=== PATIENT | male | born 2005 | race Caucasian/White ===

== ENCOUNTER 2024-11-27 18:54 | Emergency (ER) | payer BC, SELFPAY ==
--- OUTSIDE RECORDS SUMMARY | 2024-11-27 18:56 | XMS_ITS | Encounter Summary ---
Author Organization [facility], [facility], & [facility] Address [address] [place] [address] Care Team Providers Care Cryptologic Support Specialist Name Role Phone Caleb Jin MD,FAAP Primary Care Provider Unavailable Jamir Leonard MD Primary Care Provider +1- [phone] Encounter Details Date Type Department Care Team (Latest Contact Info) Description 04/10/2015 Scanning MCF SCANNING DEPT [facility] Scanned, Documents [address] [place] [address] Social History Tobacco Use Types Packs/Day Years Used Date Smoking Tobacco: Never Smokeless Tobacco: Never Alcohol Use Standard Drinks/Week Comments Not Asked 0 (1 standard drink = 0.6 oz pur e alcohol) Sex and Gender Information Value Date Recorded Sex Assigned at Not on file Legal Sex Male 2:47 PM CDT Gender Identity Not on file Sexual Orientation Not on file documented as of this encounter Plan of Treatment Not on file documented as of this encounter Visit Diagnoses Not on filedocumented in this encounter Additional Health Concerns Infection Onset Date Last Indicated Resolved Time RSV 07/19/2022 07/19/2022 07/26/2022 8:55 PM 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
--- OUTSIDE RECORDS SUMMARY | 2024-11-27 18:56 | XMS_ITS | Clinical Summary ---
Author Organization [facility], [facility], & [facility] Address [address] [place] [address] Care Team Providers Care Pipe Covering Molder Name Role Phone Jamir Leonard MD Primary Care Provider +1- [phone] Allergies No known active allergies Medications * Always verify current medications with the patient because some medications mayno longer be current as of this document. 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 Immunizations Immunization Administration Dates Next Due (12 YRS+), Pfizer SARS-COV-2 (COVID),mRNA, PF, 30 mcg/0.3ml,IM, (COMIRNATY) 04/24/2023 (2-49 Years) Influenza Vacci ne Intranasal (FLUMIST) (0.2ml prefilled) 04/03/2012,07/13/2011,03/28/2009 (2-49 Years) Influenza Vacci ne Quadrivalent Intranasal (FLUMIST) 04/09/2015 (2YR+) Influenza Vaccine MDC K quadrivalent Pres Free (FLUCELVAX) 05/03/2022 (3 Years +) Influenza Vacc Quadrivalent Preservative Free (PREFILLED) 03/29/2018,03/28/2017,03/05/2016 (6 Mo+) Influenza Vaccine Qu adrivalent Preservative Free 04/24/2023,03/30/2019 DTaP, 5 pertussis antigens (DAPTACEL) ,05/28/2005,2004,06/26,2004 HEP B-HIB (COMVAX) 02/26/2005,2004, 004 HPV 9 (Gardasil 9) 03/29/2018,03/28/2017 Hep A-Peds 2 Dose (Havrix Pe ds 2 Dose, VAQTA- 2Dose) 02/19/2011,02/09/2010 IPV (IPOL,Poliovax) 02/20/2009, 5,2004,04/24 Influenza (whole) 06/10/2005,05/07/2005 Influenza Injection, Quadriv alent Preservative Free 05/02/2021 Influenza, Unspecifed Formulation 06/10/2005, MMR (MMR II) 02/20/2009,02/26/2005 Meningococcal B, OMV (BEXSERO) 12/30/2022,2021 Meningococcal MCV4P (Menactra) 02/20/2020,2015 PFIZER COVID-19, mRNA, LNP-S , BIVALENT, PF, 30 mcg/0.3 mL dose, (AGES 12+),(wheatley cap vial), IM 04/03/2022 PFIZER SARS-COV-2 VACCINATIO N (purple cap vial) 06/26/2021,11/04/2020,10/13/2020 Pneumococcal conjugate PCV7 (Prevnar 7) 05/28/2005,2004,2004,04/24 Tdap (Adacel, Boostrix, >7 years, NOS) 6 Varicella (Varivax) 02/20/2009,02/26/2005 Family History Medical History Relation Comments High Cholesterol Father Cancer Mother Heart Disease Paternal Grandfather Relation Status Comments Father Alive Mother Alive Paternal Grandfather Social History Tobacco Use Types Packs/Day Years Used Date Smoking Tobacco: Never Smokeless Tobacco: Never Tobacco Cessation:Counseling Given: Not Answered Comments:non smoking home Alcohol Use Standard Drinks/Week Comments No 0 (1 standard drink = 0.6 oz pur e alcohol) PHQ-2 Answer Date Recorded PHQ-2 Score 0 01/18/2024 Sex and Gender Information Value Date Recorded Sex Assigned at Not on file Legal Sex Male 2:47 PM CDT Gender Identity Not on file Sexual Orientation Not on file Last Filed Vital Signs Vital Sign Reading Time Taken Comments Blood Pressure 102/68 01/18/2024 1:36 PM CDT Pulse 78 01/18/2024 1:36 PM CDT Temperature 36.8 C (98.2 F) 01/18/2024 1:36 PM CDT Respiratory Rate 16 01/18/2024 1:36 PM CDT Oxygen Saturation 98% 01/18/2024 1:36 PM CDT Inhaled Oxygen Concentration - - Weight 69.9 kg (154 lb) 01/18/2024 1:36 PM CDT Height 197.5 cm (6' 5.75) 01/18/2024 1:36 PM CD T Body Mass Index 17.91 01/18/2024 1:36 PM CDT Plan of Treatment Health Maintenance Due Date Last Done Comments COVID-19 Vaccine ([facility]) ( season) 2024 04/24/2023, 04/03/2022, 06/26/2021, Additional history exists Depression Screening/Exclusion ([facility]) 07/11/2024 01/18/2024, 12/30/2022, 10/14/2022, Additional history exists Visit with PCP ([facility]) 01/17/2025 01/18/2024 Influenza Vaccine ([facility]) (Season Ended) 2025 04/24/2023, 05/03/2022, 05/02/2021, Additional history exists DTaP/Tdap/TD Vaccines ([facility]) (7 - Td or Tdap) 03/24/2026 03/24/2016, 02/20/2009, 05/28/2005, Additional history exists Shingles Vaccines ([facility]) (1 of 2) 02/17/2054 HIB Vaccines ([facility]) Completed 02/26/2005, 1 08/27/2003, 2004 Hepatitis B Vaccines ([facility]) Completed 02/26, 2004, 2004 Pneumococcal Vaccine: Pediatrics (0 to 5 Years) And At Risk Patients (6 to 49 Years) ([facility]) Aged Out 05/28/2005, 2004, 2004, Additional history exists No longer eligible based on patient's age to complete this topic IPV Vaccines ([facility]) Completed 02/20/2009, 0 2004, 2004, Additional history exists Hepatitis A Vaccines ([facility]) Completed 02/19/2011, HPV Vaccines ([facility]) Completed 03/29/2018, 03/28/2017 Meningococcal ACWY Vaccines ([facility]) Completed 02/20/2020, 03/24/2016 Meningococcal B Vaccine ([facility]) Completed 12/30/2022, 01/21/2022 HIV Screen ([facility]) Discontinued Hepatitis C Screening ([facility]) Discontinued Insurance [employer] Member Subscriber Plan / Payer (Ef fective 2018-Present) Name:Cristian Hobbs Relation to Subscriber:Child Name:CHRIS KUHNCY Yosef Date of :1966 Address: [address] [place] [address] Payer ID:[id number] ([facility]) Type:[employer] Address: [place] [id number] [employer] Member Subscriber Plan / Payer (Ef fective 2018-Present) Name:Cristian Hobbs Relation to Subscriber:Child Name:Ludy Kuhn Date of :1966 ([place]) Address: [address] [place] [address] Payer ID:Not on file Type:Not on file Address: [place] [phone] [employer] Care Teams Pipe Covering Molder Relationship Specialty Start Date End Date Jamir Leonard MD [address] [address] PCP - General Internal Medicine 01/25/24
--- OUTSIDE RECORDS SUMMARY | 2024-11-27 18:56 | XMS_ITS | Encounter Summary ---
Author Organization [facility], [facility], [facility] Address [address] [place] [address] Care Team Providers Care Environmental Issues Instructor Name Role Phone Caleb Jin MD,FAAP Primary Care Provider Unavailable Jamir Leonard MD Primary Care Provider +1- [phone] Encounter Details Date Type Department Care Team (Latest Contact Info) Description 05/30/2019 Scanning [facility] SCANNING DEPT [facility] Scanned, Documents [address] [place] [address] Social History Tobacco Use Types Packs/Day Years Used Date Smoking Tobacco: Never Smokeless Tobacco: Never Comments:non smoking home Alcohol Use Standard Drinks/Week [...] Time RSV 07/19/2022 07/19/2022 07/26/2022 8:55 PM BALLET MASTER/MISTRESS Assessment Noted Time PHQ-9 Depression Total Score: 2 03/28/20 17 4:00 PM CDT PHQ-2 Depression Total Score: 1 03/30/20 19 3:12 PM CDT documented as of this encounter Care Teams Environmental Issues Instructor Relationship Specialty Start Date End Date Caleb Jin MD,FAAP PCP - General Pediatrics 04/09/15 01/24/24 Jamir Leonard MD [address] [place] [address] PCP - General Internal Medicine 01/25/24 documented as of this encounter
--- OUTSIDE RECORDS SUMMARY | 2024-11-27 18:56 | XMS_ITS | Encounter Summary ---
Author Organization [facility], [facility], [facility] Address [address] [place] [address] Care Team Providers Care Causticiser Name Role Phone Caleb Jin MD,FAAP Primary Care Provider Unavailable Jamir Leonard MD Primary Care Provider +1- [phone] Encounter Details Date Type Department Care Team (Latest Contact Info) Description 06/06/2019 Scanning [facility] SCANNING DEPT [facility] Scanned, Documents [address] [place] [address] Social History Tobacco Use Types Packs/Day [...] Time RSV 07/19/2022 07/19/2022 07/26/2022 8:55 PM LOADING INSPECTOR Assessment Noted Time PHQ-9 Depression Total Score: 2 03/28/20 17 4:00 PM CDT PHQ-2 Depression Total Score: 1 03/30/20 19 3:12 PM CDT documented as of this encounter Care Teams Causticiser Relationship Specialty Start Date End Date Caleb Jin MD,FAAP PCP - General Pediatrics 04/09/15 01/24/24 Jamir Leonard MD [address] [place] [address] PCP - General Internal Medicine 01/25/24 documented as of this encounter
--- OUTSIDE RECORDS SUMMARY | 2024-11-27 18:56 | XMS_ITS | Encounter Summary ---
Author Organization [facility], [facility], & [facility] Address [address] [place] [address] Care Team Providers Care Tactical Air Control Party Manager Name Role Phone Caleb Jin MD,FAAP Primary Care Provider Unavailable Jamir Leonard MD Primary Care Provider +1- [phone] Encounter Details Date Type Department Care Team (Latest Contact Info) Description 05/26/2022 Scanning MCF SCANNING DEPT [facility] Scanned, Documents [address] [place] [address] Social History Tobacco Use Types [...] on file Sexual Orientation Not on file COVID-19 Exposure Response Date Recorded In the last 10 days, have yo u been in contact with someone who was confirmed or suspected to have Coronavirus/COVID-19? No / Unsure 05/14/2022 10:38 AM CDT documented as of this encounter Plan of Treatment Not on file documented as of this encounter Visit Diagnoses Not on filedocumented in this encounter Additional Health Concerns Infection Onset Date Last Indicated Resolved Time RSV 07/19/2022 07/19/2022 07/26/2022 8:55 PM PIPE STRIPPER Assessment Noted Time PHQ-9 Depression Total Score: 4 08/07/19 22 4:33 PM PIPE STRIPPER PHQ-2 Depression Total Score: 0 05/14/20 22 10:50 AM CDT documented as of this encounter Care Teams Tactical Air Control Party Manager Relationship Specialty Start Date End Date Caleb Jin MD,FAAP PCP - General Pediatrics 04/09/15 01/24/24 Jamir Leonard MD [address] [place] [address] PCP - General Internal Medicine 01/25/24 documented as of this encounter
--- OUTSIDE RECORDS SUMMARY | 2024-11-27 18:56 | XMS_ITS | Encounter Summary ---
Author Organization [facility], [facility] Address [address] [place] [address] Care Team Providers Care Food And Beverage Outlets Manager Name Role Phone Caelb Jin MD,FAAP Primary Care Provider Unavailable Jamir Leonard MD Primary Care Provider +1- [phone] Encounter Details Date Type Department Care Team (Latest Contact Info) Description 07/18/2019 Scanning MCF SCANNING DEPT [facility] Scanned, Documents [address] [place] [address] Social History Tobacco Use Types Packs/Day [...] Time RSV 07/19/2022 07/19/2022 07/26/2022 8:55 PM QUALITY REVIEW SPECIALIST Assessment Noted Time PHQ-9 Depression Total Score: 2 03/28/20 17 4:00 PM CDT PHQ-2 Depression Total Score: 0 07/18/19 20 3:41 PM QUALITY REVIEW SPECIALIST documented as of this encounter Care Teams Food And Beverage Outlets Manager Relationship Specialty Start Date End Date Caleb Jin MD,FAAP PCP - General Pediatrics 04/09/15 01/24/24 Jamir Leonard MD [address] [address] PCP - General Internal Medicine 01/25/24 documented as of this encounter
--- OUTSIDE RECORDS SUMMARY | 2024-11-27 18:56 | XMS_ITS | Clinical Summary ---
Author Organization [facility] Address [address] [place] [address] Care Team Providers Care Education Program Associate Name Role Phone Caleb Jin MD Primary Care Provider Unavaila ble Source Comments This disclosure is being made pursuant to the [employer] program and may contain all information available regarding this patient.[facility] Social History Tobacco Use Types Packs/Day Years Used Date Smoking Tobacco: Never Assessed Sex and Gender Information Value Date Recorded Sex Assigned at Not on file Legal Sex Male 10:56 AM CASHIER [address] Gender Identity Not on file Sexual Orientation Not on file Plan of Treatment Health Maintenance Due Date Last Done Comments Lab-Cholesterol Screening 2004 Lab-Hepatitis C Screening 2004 HPV Vaccine ([id number],M: 9-2 2) (1 - Male 3-dose series) 02/17/2019 Meningococcal B Vaccine (1 o f 2 - Standard) 2020 Annual Wellness Visit 02/17/2022 Hepatitis B Vaccine (1 of 3 - 19+ 3-dose series) 02/17/2023 Tetanus/Pertussis Vaccine Teen/Adult (1 - Tdap) 02/17/2023 COVID-19 Vaccine (1 - 2023-2 5 season) 2024 Influenza Vaccine (#1) 2024 Zoster (Shingles) Vaccine 50 + (1 of 2) 02/17/2054 RSV Adult (1 - 1-dose 75+ series) 02/17/2079 HIB Vaccine Aged Out No longer eligi ble based on patient's age to complete this topic Hepatitis A Vaccine Aged Out No longe r eligible based on patient's age to complete this topic IPV Vaccine Aged Out No longer eligi ble based on patient's age to complete this topic Meningococcal Conjugate Vaccine Aged Out No longer eligible based on patient's age to complete this topic Pneumococcal Vaccines 0-49 yo Aged Out No longer eligible based on patient's age to complete this topic RSV < 20 Months Aged Out No longer el igible based on patient's age to complete this topic Insurance [facility] PPO Care Teams Education Program Associate Relationship Specialty Start Date End Date Caleb Jin MD PCP - General Pediatrics 05/11/19
--- OUTSIDE RECORDS SUMMARY | 2024-11-27 18:56 | XMS_ITS | Encounter Summary ---
Author Organization [facility], [facility], [facility] Address [address] [place] [address] Care Team Providers Care Nfl Player Name Role Phone Caleb Jin MD,FAAP Primary Care Provider Unavailable Jamir Leonard MD Primary Care Provider +1- [phone] Encounter Details Date Type Department Care Team (Latest Contact Info) Description 05/28/2019 Scanning MCF SCANNING DEPT [facility] Scanned, Documents [address] [place] [address] Social History Tobacco Use Types Packs/Day [...] Time RSV 07/19/2022 07/19/2022 07/26/2022 8:55 PM ENGINEERING GROUP MANAGER Assessment Noted Time PHQ-9 Depression Total Score: 2 03/28/20 17 4:00 PM CDT PHQ-2 Depression Total Score: 1 03/30/20 19 3:12 PM CDT documented as of this encounter Care Teams Nfl Player Relationship Specialty Start Date End Date Caleb Jin MD,FAAP PCP - General Pediatrics 04/09/15 01/24/24 Jamir Leonard MD [address] [address] PCP - General Internal Medicine 01/25/24 documented as of this encounter
--- OUTSIDE RECORDS SUMMARY | 2024-11-27 18:56 | XMS_ITS | Encounter Summary ---
Author Organization [facility], [facility], & [facility] Address [address] [place] [address] Care Team Providers Care Treatment Supervisor Name Role Phone Caleb Jin MD,FAAP Primary Care Provider Unavailable Jamir Leonard MD Primary Care Provider +1- [phone] Encounter Details Date Type Department Care Team (Latest Contact Info) Description 06/09/2022 Scanning MCF SCANNING DEPT [facility] Scanned, Documents [address] [place] [address] Social History Tobacco Use Types [...] suspected to have Coronavirus/COVID-19? No / Unsure 06/09/2022 7:22 AM DIRECTOR PEDIATRIC documented as of this encounter Plan of Treatment Not on file documented as of this encounter Visit Diagnoses Not on filedocumented in this encounter Additional Health Concerns Infection Onset Date Last Indicated Resolved Time RSV 07/19/2022 07/19/2022 07/26/2022 8:55 PM DIRECTOR PEDIATRIC Assessment Noted Time PHQ-9 Depression Total Score: 4 08/07/19 22 4:33 PM DIRECTOR PEDIATRIC PHQ-2 Depression Total Score: 0 06/09/20 3:46 PM DIRECTOR PEDIATRIC documented as of this encounter Care Teams Treatment Supervisor Relationship Specialty Start Date End Date Caleb Jin MD,FAAP PCP - General Pediatrics 04/09/15 01/24/24 Jamir Leonard MD [address] [place] [address] PCP - General Internal Medicine 01/25/24 documented as of this encounter
--- OUTSIDE RECORDS SUMMARY | 2024-11-27 18:56 | XMS_ITS | Clinical Summary ---
Author Organization [facility] Address [address] [place] [address] Care Team Providers Care Curb Builder Name Role Phone Clinic, No Pcp Or Primary Care Provider Unavaila ble Allergies No known active allergies Medications cetirizine (ZyrTEC) 10 mg tablet Take 10 mg by mouth once daily. Active albuterol HFA (PRO-AIR; VENTOLIN; PROVENTIL) 90 mcg/actuation inhalerIndicati ons:Chronic cough Inhale 1-2 Puffs by mouth every 4 hours if needed for Shortness Of Breath or Wheezing. 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 Resolved Problems Problem Noted Date Diagnosed Date Resolved Date Patellar dislocation, left, subsequent encounter 05/28/2019 07/15/2023 Encounters Date Type Department Care Team Description 09/14/2024 Nurse Triage [facility] [address] [place] [address] Clinic, No Pcp Or Infection on Antibiotic Follow-up 09/12/2024 10:35 AM MILLING OPERATOR Office Visit [facility] [address] [place] [address] Bridget Majano Winter DO URI (x5 days, congestion cough ) 09/12/2024 Travel from Last 3 Months Immunizations Immunization Administration Dates Next Due COVID-19 VACCINE COMIRNATY (PFIZER-BIONTECH 30MCG/0.3ML) 12YO+ PFS 04/24/2023 COVID-19 vaccine (Pfizer-Bio NTech 30mcg/0.3mL) 12YO+ BIVALENT PF, MDV 04/03/2022 COVID-19 vaccine ([employer] 30mcg/0.3mL) PF, MDV 06/26/2021 Dtap-5 Pertussis Antigens 02/20/2009,,2004,06/26,2004 HIB-HepB (Comvax) 02/26/2005,2004,04/24/20 04 HPV 9 (Gardasil 9) 03/29/2018,03/28/2017 Hepatitis A (Peds) 02/19/2011,02/09/2010 Inactivated Polio Vaccine 02/20/2009,,2004,04/24 Influenza Virus, Unspecified 05/03/2022, 03/30/2019,03/29/2018,03/28,03/05/2016,04/09/2015,06/10/2005 ,05/07/2005 Influenza, IIV4 04/24/2023,05/02/2021 Influenza, Whole Virus 06/10/2005,05/07/2005 Influenza,LAIV3 Live Intrana ayleen (Flumist) 04/03/2012,07/13/2011,03/28/2009 MMR 02/20/2009,02/26/2005 Meningococcal B 12/30/2022,01/21/2022 Meningococcal Vaccine (Menactra) 02/20/2020,03/11 Pneumococcal conj 7-Valent (Prevnar 7) 1 2004,2004,2004,04/24 Tdap 03/24/2016 Varicella Vaccine 02/20/2009,02/26/2005 Social History Tobacco Use Types Packs/Day Years Used Date Smoking Tobacco: Never Smokeless Tobacco: Never Tobacco Cessation:Counseling Given: Yes Alcohol Use Standard Drinks/Week Comments Never 0 (1 standard drink = 0.6 oz pur e alcohol) PHQ-2 Answer Date Recorded PHQ-2 TOTAL SCORE 2 08/02/2024 Sex and Gender Information Value Date Recorded Sex Assigned at Not on file Legal Sex Male 2:09 PM CDT Gender Identity Not on file Sexual Orientation Not on file Obstetrics History Last Filed Vital Signs Vital Sign Reading Time Taken Comments Blood Pressure 129/75 09/12/2024 10:49 AM MILLING OPERATOR Pulse 72 09/12/2024 10:49 AM MILLING OPERATOR Temperature 36.7 C (98 F) 09/12/2024 10:49 AM MILLING OPERATOR Respiratory Rate - - Oxygen Saturation 99% 09/12/2024 10:49 AM MILLING OPERATOR Inhaled Oxygen Concentration - - Weight 71.5 kg (157 lb 9.6 oz) 09/12/2024 10:49 AM MILLING OPERATOR Height - - Body Mass Index - - Plan of Treatment Health Maintenance Due Date Last Done Comments Well Child Check for age 3-20 01/17/2007 HIV for age 15-65 02/17/2019 BMI (ht and wt on same day) for age 18+ 02/17/2022 Hepatitis C screening for age 18-79 02/17/2022 COVID-19 vaccine series ( - 2023- season) 2024 04/24/2023, 04/03/2022, 06/26/2021, Additional history exists Influenza Vaccine (Season Ended) 2025 04/24/2023, 05/03/2022, 05/02/2021, Additional history exists Depression screening for age 12+ 08/02/2025 08/02/2024 Tetanus booster 03/24/2026 03/24/2016 Hepatitis B series for 19+ Completed 02/26, 2004, 2004 Pneumococcal series for age 6-49 Aged Out 05/28/2005, 2004, 2004, Additional history exists No longer eligible based on patient's age to complete this topic Tdap Completed 03/24/2016 HPV series for age 9-26 Completed 03/29/2018, 03/28 Meningococcal series for age 11-21 Completed 02/20/2020, 03/24/2016 Insurance [facility] Care Teams Curb Builder Relationship Specialty Start Date End Date Clinic, No Pcp Or . PCP - General 02/04/23
[2024-11-27 19:03] VITALS: BP 135/65; PULSE 128; RESP 20; TEMP 37.7; O2SAT 95; BMI 21.5
--- NOTE | 2024-11-27 19:19 | ED_ITS ---
HPI - General Adult General Chief complaint: Cough Stated complaint: Sick possible COVID Time Seen by Provider: 11/27/24 19:12 History of Present Illness HPI narrative: Patient reports cough, congestion, fever and achiness beginning last week but gradually worsening. Is taking Day Quil and Ny Quil. Patient's mother raises concern for Rabies as patient was bite by a stray cat several days ago. 19-year-old young man presenting to the emergency department with concern of ab out a week of cough congestion and elevated temperature. Symptoms began last week but over the last day in particular have worsened. Dpgw-cie-qfsiuqy DayQuil and NyQuil. Does have some sinus discomfort or headache across the frontal sinuses/4 head/eyes. Mom notes that really was prompting the visit though is her concern, there concern about cat bite and potential rabies. This cat bite with further questioning does sound it may have broken the skin on the right forearm. This cat is technically a stray but well known to a home where Cristian hangs out with his friends. The cat is friendly but can nip. Cat was seen actually yesterday in normal behavior. No particular pain or swelling or loss of sensation in the right arm. Has been given albuterol inhaler before but that is apparently due to some wheeze that may have been auscultated during other URI diagnosis. Does not have a diagnosis of asthma. Related Data Home Medications ?Medication ?Instructions ?Recorded ?Confirmed cetirizine 10 mg capsule (Zyrtec) 5 mg PO QDAY PRN 07/0211/27/24 Allergies Allergy/AdvReac Type Severity Reaction Status Date / Time No Known Drug Allergies Allergy Verified 04/02/24 11:08 Review of Systems Status of ROS: Reports: 6 or more systems reviewed and unremarkable except as noted in History and below [facility] Social History Smoking Status: Never smoker Do you use any of these nicotine containing products: None How often do you have a drink containing alcohol: never AUDIT-C Alcohol total score: 0 Non-prescribed substance use: denies use Exam Narrative: Exam Narrative: Pleasant. Tall. Does appear little flushed. Skin is otherwise warm and dry. TMs are clear. No facial swelling or erythema or tenderness over the maxillary sinuses. Congested in the nasopharynx. Oropharynx is moist. Mild erythema posteriorly. Neck is supple. Sore to palpation at the left neck but I do not appreciate any swelling or unusual lymphadenopathy. Extraocular movements look to be intact. Pupils are equal. Lungs are clear. Heart in elevated to tachycardic rate. Regular rhythm. No murmur rub or gallop identified. Abdomen is flat soft nontender. Well-perfused peripherally without edema. Exploration of the right forearm does not reveal any evidence of injury here. No axillary lymphadenopathy either. Const: Vital Signs, click to edit/add: Vital Signs - 24 hr 11/27/24 19:03 Temperature 99.8 F H Pulse Rate [Pulse Oximeter] 128 H Respiratory Rate 20 Blood Pressure [Ri ght Upper Arm] 135/65 Pulse Oximetry 95 Oxygen Delivery Me thod Room Air Documenting provider has reviewed patient's vital signs: yes Course Vital Signs Vital signs: Initial Vital Signs Temperature 99.8 F H 11/27/24 19:03 Temperature Source Temporal Artery Scan 11/27/24 19:03 Pulse Rate 128 H 11/27/24 19:03 Respiratory Rate 20 11/27/24 19:03 Blood Pressure 135/65 11/27/24 19:03 Blood Pressure Mean 88 11/27/24 19:03 Pulse Oximetry 95 11/27/24 19:03 Oxygen Delivery Method Room Air 11/27/24 19:03 Vital Signs Temperature 99.8 F H 11/27/24 19:03 Pulse Rate 128 H 11/27/24 19:03 Respiratory Rate 20 11/27/24 19:03 Blood Pressure 135/65 11/27/24 19:03 Pulse Oximetry 95 11/27/24 19:03 Oxygen Delivery Method Room Air 11/27/24 19:03 Temperature 99.8 F H 11/27/24 19:03 Pulse Rate 128 H 11/27/24 19:03 Respiratory Rate 20 11/27/24 19:03 Blood Pressure 135/65 11/27/24 19:03 Pulse Oximetry 95 11/27/24 19:03 Oxygen Delivery Method Room Air 11/27/24 19:03 Medical Decision Making [facility] Narrative Medical decision making narrative: Does appear to be suffering from escalation URI. Might be experiencing a sinusitis now. Symptoms now for a week and worsening. Would consider chest x- ray though I suspect does not have a pneumonia. I think might benefit from some prednisone for sinus and chest symptoms. It sounds as though the risk for rabies/rabies exposure would be quite low. With concerns I did place a call to [facility]. Recommendations are as expected; since the cat is a frequent visitor is to monitor. Contain if possible for 10 days following this bite. If not able to locate this cat or behavior has dramatically altered would then initiate rabies vaccine series after that period of time Chest x-ray independently reviewed by me looks to be without consolidation, infiltrate. Normal cardiac silhouette. Did take ibuprofen as administered by mom here in the emergency department. See patient discharge plan for further discussion Focus on hydration. Consider sleeping under the mist of a cool mist humidifier. Menthol vapors might be helpful. Can try various crfu-wwr-eamwwdn cough syrups if you like. Be careful with the combination products; they tend to be rather expensive 1st of all; just be sure to read the label on the back so you know everything that is in them. Pseudoephedrine can be helpful for decongestion and therefore help with cough as well particularly if experiencing postnasal drip. Prescribing some prednisone from [facility]. 4 days should be enough. Can take up to 600 mg of ibuprofen or up to 1000 mg of acetaminophen per dose. This might be helpful with body aches. These can be combined as well. If this CT(cat) is still behaving normally and about at 10 days I would say you are in the clear. If you have not managed to locate the cat (which would also potentially indicate that it is acting abnormally), then would consider getting the rabies vaccine series as you have noted there was a break in the skin. You can call to the [facility] at any time with further questions as well. Lab Data Labs: Lab Results 11/27/24 Range/Units 19:15 SARS-CoV-2 (PCR) Negative SARS-CoV-2 (Negative) Influenza Type A (PCR) Negative PCR FLU A (Negative) Influenza Type B (PCR) Negative PCR FLU B (Negative) RSV (PCR) Negative PCR RSV (Negative) Discharge Plan Discharge Clinical Impression: URI (upper respiratory infection), Cough Patient Disposition: Home w/ Parent or Adult Condition: Improved Instructions: Upper Respiratory Infection (DC) Additional Instructions: Focus on hydration. Consider sleeping under the mist of a cool mist humidifier. Menthol vapors might be helpful. Can try various almb-scd-ubfglrk cough syrups if you like. Be careful with the combination products; they tend to be rather expensive 1st of all; just be sure to read the label on the back so you know everything that is in them. Pseudoephedrine can be helpful for decongestion and therefore help with cough as well particularly if experiencing postnasal drip. Prescribing some prednisone from [facility]. 4 days should be enough. Can take up to 600 mg of ibuprofen or up to 1000 mg of acetaminophen per dose. This might be helpful with body aches. These can be combined as well. If this CT is still behaving normally and about at 10 days I would say you are in the clear. If you have not managed to locate the cat (which would also potentially indicate that it is acting abnormally), then would consider getting the rabies vaccine series as you have noted there was a break in the skin. You can call to the [place] department of [facility] at any time with further questions as well. Prescriptions: No Action Zyrtec 10 mg capsule 5 mg PO QDAY PRN Follow Up/Referrals: Provider,Not a Local [Primary Care Provider, Family Practice] Stand Alone Forms: Notify [employer] Info Instructions
--- NOTE | 2024-11-27 19:42 | CRLHL7_ITS ---
For Patients: As a result of the Century Cures Act, medical imaging exams and procedure reports are released immediately into your electronic medical record. You may view this report before your referring provider. If you have questions, please contact your health care provider. INDICATION: Cough, chest congestion. TECHNIQUE: Chest 2 views. COMPARISON: None. FINDINGS: Cardiovascular and mediastinum: Heart size and vasculature are normal in caliber and appearance. Lungs and pleural spaces: No focal consolidation, pleural effusion, or pneumothorax. Bones and soft tissues: Unremarkable for age. IMPRESSION: No evidence of an acute pulmonary process. Dictated by Arnold Denise MD @ 11/27/2024 8:03:53 PM (Electronically Signed)
--- OUTSIDE RECORDS SUMMARY | 2024-11-27 19:50 | XMS_ITS | Encounter Summary ---
Author Organization [facility], [facility], [facility] Address [address] [place] [address] Care Team Providers Care Tree Pruner Name Role Phone Caleb Jin MD,FAAP Primary Care Provider Unavailable Jamir Leonard MD Primary Care Provider +1- [phone] Encounter Details Date Type Department Care Team (Latest Contact Info) Description 05/30/2019 Scanning MCF SCANNING DEPT [facility] Scanned, Documents [address] [place] [address] Social History Tobacco Use Types Packs/Day [...] Time RSV 07/19/2022 07/19/2022 07/26/2022 8:55 PM 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
--- OUTSIDE RECORDS SUMMARY | 2024-11-27 19:50 | XMS_ITS | Clinical Summary ---
Author Organization [facility], [facility], & [facility] Address [address] [place] [address] Care Team Providers Care Stain Applicator Name Role Phone Jamir Leonard MD Primary Care Provider +1- [phone] Allergies No known active allergies Medications * [...] Due Date Last Done Comments COVID-19 Vaccine ([facility]) ( season) 2024 04/24/2023, 04/03/2022, 06/26/2021, Additional history exists Depression Screening/Exclusion ([facility]) 07/11/2024 01/18/2024, 12/30/2022, 10/14/2022, Additional history exists Visit with PCP ([facility]) 01/17/2025 01/18/2024 Influenza Vaccine ([facility]) (Season Ended) 2025 04/24/2023, 05/03/2022, 05/02/2021, Additional history exists DTaP/Tdap/TD Vaccines ([facility]) (7 - Td or Tdap) 03/24/2026 03/24/2016, 02/20/2009, 05/28/2005, Additional history exists Shingles Vaccines ([facility]) (1 of 2) 02/17/2054 HIB Vaccines ([facility]) Completed 02/26/2005, 1 08/27/2003, 2004 Hepatitis B Vaccines ([facility]) Completed 02/26, 2004, 2004 Pneumococcal Vaccine: Pediatrics (0 to 5 Years) And At Risk Patients (6 to 49 Years) ([facility]) Aged Out 05/28/2005, 2004, 2004, Additional [...] Discontinued Hepatitis C Screening ([facility]) Discontinued Insurance [email or web address] SHIELD Member Subscriber Plan / Payer (Ef fective 2018-Present) Name:Cristian Hobbs Relation to Subscriber:Child Name:CHRIS KUHNCY Yosef Date of :1966 Address: [address] [place] [address] Payer ID:[id number] ([facility]) Type:[employer] Address: [place] [id number] BLUE Social IQ (Social Influence Quotient) BLUE SHIELD/[employer]LL[employer] Member Subscriber Plan / Payer (Ef fective 2018-Present) Name:Cristian Hobbs Relation to Subscriber:Child Name:Ludy Kuhn Date of :1966 ([place]) Address: [address] [place] [address] Payer ID:Not on file Type:Not on file Address: [place] [id number] [email or web address] Care Teams Stain Applicator Relationship Specialty Start Date End Date Jamir Leonard MD [address] [address] PCP - General Internal Medicine 01/25/24
--- OUTSIDE RECORDS SUMMARY | 2024-11-27 19:50 | XMS_ITS | Encounter Summary ---
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
--- OUTSIDE RECORDS SUMMARY | 2024-11-27 19:50 | XMS_ITS | Encounter Summary ---
Author Organization [facility] [place], [facility], & [facility] Address [address] [place] [address] Care Team Providers Care Registered Medical Assistant Name Role Phone Caleb Jin MD,FAAP Primary Care Provider Unavailable Jamir Leonard MD Primary Care Provider +1- [phone] Encounter Details Date Type Department Care Team (Latest Contact Info) Description 05/26/2022 Scanning MCF SCANNING DEPT [facility] Scanned, Documents [address] [place] [address] Social History Tobacco Use Types [...] Time RSV 07/19/2022 07/19/2022 07/26/2022 8:55 PM SPECIMEN BOSS Assessment Noted Time PHQ-9 Depression Total Score: 4 08/07/19 22 4:33 PM SPECIMEN BOSS PHQ-2 Depression Total Score: 0 05/14/20 22 10:50 AM CDT documented as of this encounter Care Teams Registered Medical Assistant Relationship Specialty Start Date End Date Caleb Jin MD,FAAP PCP - General Pediatrics 04/09/15 01/24/24 Jamir Leonard MD [address] [place] [address] PCP - General Internal Medicine 01/25/24 documented as of this encounter
--- OUTSIDE RECORDS SUMMARY | 2024-11-27 19:50 | XMS_ITS | Clinical Summary ---
Author Organization [employer] Address [address] [place] [address] Care Team Providers Care Footwear Sales Coordinator Name Role Phone Caleb Jin MD Primary Care Provider Unavaila ble Source Comments This disclosure is being made pursuant to the [employer] program and may contain all information available regarding this patient.[employer] Social History Tobacco Use Types Packs/Day Years Used Date Smoking Tobacco: Never Assessed Sex and Gender Information Value Date Recorded Sex Assigned at Not on file Legal Sex Male 10:56 AM [employer] Gender Identity Not on file Sexual Orientation [...] patient's age to complete this topic Insurance [facility] PPO Care Teams Footwear Sales Coordinator Relationship Specialty Start Date End Date Caleb Jin MD PCP - General Pediatrics 05/11/19
--- OUTSIDE RECORDS SUMMARY | 2024-11-27 19:50 | XMS_ITS | Encounter Summary ---
Author Organization [facility], [facility], [facility] Address [address] [place] [address] Care Team Providers Care Junior Project Manager Name Role Phone Caleb Jin MD,FAAP Primary Care Provider Unavailable Jamir Leonard MD Primary Care Provider +1- [phone] Encounter Details Date Type Department Care Team (Latest Contact Info) Description 06/06/2019 Scanning MCF SCANNING DEPT [facility] Scanned, Documents [address] [place] [address] Social History Tobacco Use Types Packs/Day [...] Time RSV 07/19/2022 07/19/2022 07/26/2022 8:55 PM MUSIC PROFESSOR Assessment Noted Time PHQ-9 Depression Total Score: 2 03/28/20 17 4:00 PM CDT PHQ-2 Depression Total Score: 1 03/30/20 19 3:12 PM CDT documented as of this encounter Care Teams Junior Project Manager Relationship Specialty Start Date End Date Caleb Jin MD,FAAP PCP - General Pediatrics 04/09/15 01/24/24 Jamir Leonard MD [address] [address] PCP - General Internal Medicine 01/25/24 documented as of this encounter
--- OUTSIDE RECORDS SUMMARY | 2024-11-27 19:50 | XMS_ITS | Encounter Summary ---
Author Organization [facility], [facility], & [facility] Address [address] [place] [address] Care Team Providers Care Expediter Clerk Name Role Phone Caleb Jin MD,FAAP Primary Care Provider Unavailable Jamir Leonard MD Primary Care Provider +1- [phone] Encounter Details Date Type Department Care Team (Latest Contact Info) Description 06/09/2022 Scanning MCF SCANNING DEPT [facility] Scanned, Documents [address] [place] [address] Social History Tobacco Use Types [...] Coronavirus/COVID-19? No / Unsure 06/09/2022 7:22 AM DIVER ASSISTANT documented as of this encounter Plan of Treatment Not on file documented as of this encounter Visit Diagnoses Not on filedocumented in this encounter Additional Health Concerns Infection Onset Date Last Indicated Resolved Time RSV 07/19/2022 07/19/2022 07/26/2022 8:55 PM DIVER ASSISTANT Assessment Noted Time PHQ-9 Depression Total Score: 4 08/07/19 22 4:33 PM DIVER ASSISTANT PHQ-2 Depression Total Score: 0 06/09/20 3:46 PM DIVER ASSISTANT documented as of this encounter Care Teams Expediter Clerk Relationship Specialty Start Date End Date Caleb Jin MD,FAAP PCP - General Pediatrics 04/09/15 01/24/24 Jamir Leonard MD [address] [place] [address] PCP - General Internal Medicine 01/25/24 documented as of this encounter
--- OUTSIDE RECORDS SUMMARY | 2024-11-27 19:50 | XMS_ITS | Encounter Summary ---
Author Organization [facility], [facility], [facility] Address [address] [place] [address] Care Team Providers Care Photo Mask Processor Name Role Phone Caleb Jin MD,FAAP Primary Care Provider Unavailable Jamir Leonard MD Primary Care Provider +1- [phone] Encounter Details Date Type Department Care Team (Latest Contact Info) Description 05/28/2019 Scanning MCF SCANNING DEPT [facility] Scanned, Documents [address] [place] [address] Social History Tobacco Use Types Packs/Day [...] Time RSV 07/19/2022 07/19/2022 07/26/2022 8:55 PM IMAGING ASSISTANT Assessment Noted Time PHQ-9 Depression Total Score: 2 03/28/20 17 4:00 PM CDT PHQ-2 Depression Total Score: 1 03/30/20 19 3:12 PM CDT documented as of this encounter Care Teams Photo Mask Processor Relationship Specialty Start Date End Date Caleb Jin MD,FAAP PCP - General Pediatrics 04/09/15 01/24/24 Jamir Leonard MD [address] [address] PCP - General Internal Medicine 01/25/24 documented as of this encounter
--- OUTSIDE RECORDS SUMMARY | 2024-11-27 19:50 | XMS_ITS | Encounter Summary ---
Author Organization [facility], [facility], [facility] Address [address] [place] [address] Care Team Providers Care Slide Attendant Name Role Phone Caleb Jin MD,FAAP Primary Care Provider Unavailable Jamir Leonard MD Primary Care Provider +1- [phone] Encounter Details Date Type Department Care Team (Latest Contact Info) Description 07/18/2019 Scanning MCF SCANNING DEPT [facility] Scanned, Documents [address] [place] [address] Social History Tobacco Use Types Packs/Day [...] Time RSV 07/19/2022 07/19/2022 07/26/2022 8:55 PM HVAC FIELD 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
[2024-11-27 19:56] LABS: PCR FLU A Negative PCR FLU A (Negative); PCR FLU B Negative PCR FLU B (Negative); PCR RSV Negative PCR RSV (Negative); SARS PCR* Negative SARS-CoV-2 (Negative)
== END 2024-11-27 20:59 | disposition home or self-care (01) ==
PROVIDERS: Emergency Provider Family Medicine
DX: J06.9 Acute upper respiratory infection, unspecified (principal); R05.9 Cough, unspecified
CPT/HCPCS: 71046; 87631; 99283; 99284